=== PATIENT | female | born 1955 | race Caucasian/White ===

== ENCOUNTER 2020-03-24 12:21 | Outpatient (CLI) | payer MEDICARE, SELFPAY ==
--- NOTE | ~2020-03-24 | MM_ITS ---
EXAMINATION: MM screening [facility] BI w raul HISTORY: Screening mammogram TECHNIQUE: Craniocaudal and mediolateral oblique 3-D tomosynthesis images were obtained and synthetic 2-D images were generated. CAD analysis was submitted and interpreted. COMPARISON: 03/06/2019, 03/07/2017, 06/23/2016, 12/09/2015 BREAST PARENCHYMAL COMPOSITION: The breasts are heterogeneously dense, which may obscure small masses . FINDINGS: There is no evidence of suspicious mass, calcification, or architectural distortion to sugg est malignancy in either breast. There has been no suspicious interval change. IMPRESSION: 1. No mammographic evidence of malignancy. 2. Recommend routine screening mammography in one year. BI-RADS Category 1: Negative Reviewed, dictated and finalized at location A. MACHINE OPERATOR
--- NOTE | ~2020-03-24 | DEXA_ITS ---
Bone Density Report Name: Jeane Barroso Age: 65 Sex: Female Ethnicity: White Date of : 1955 Indication: osteopenia; hyperparathyroidism; height loss; prior fracture; cancer; hysterectomy; Referring Provider: Ysabel Rhodes Study: Bone densitometry was performed. Exam Date: March 24, 2020 Accession number: [id number] Bone Density: Region BMD T-score Z-score Classification AP Spine(L1-L4) 0.866 -1.6 0.3 Osteopenia Femoral Neck (Left) 0.699 -1.4 0.3 Osteopenia Total Hip (Left) 0.771 -1.4 -0.1 Osteopenia Femoral Neck (Right) 0.699 -1.3 0.3 Osteopenia Total Hip (Right) 0.768 -1.4 -0.1 Osteopenia Femoral Neck Mean 0.699 -1.4 0.3 Osteopenia Total Hip Mean 0.770 -1.4 -0.1 Osteopenia World Health Organization criteria for BMD impression classify patients as: Normal (T-score at or above -1.0), Osteopenia (T-score between -1.0 and -2.5), or Osteoporosis (T-score at or below -2.5). 10-year Fracture Risk(1): Major Osteoporotic Fracture 14% Hip Fracture 1.5% Reported Risk Factors: [place] (), Neck BMD=0.699, BMI=23.5, previous fracture (1) FRAX(R) Version 3.08. Fracture probability calculated for an untreated patient. Fracture probability may be lower if the patient has received treatment. Previous Exams: Region Exam Age BMD T-score BMD Change BMD Change Date g/cm2 vs Baseline vs Previous AP Spine (L1-L4) 03/24/2020 65 0.866 -1.6 0.016 (1.9%)# 0.016 (1.9%)# 11/01/2017 62 0.850 -1.8 Total Hip(Left) 03/24/2020 65 0.771 -1.4 -0.024 (-3.0%) -0.024 (-3.0%) 11/01/2017 62 0.795 -1.2 *Denotes significance at 95% confidence level, LSC for AP Spine = 0.022 g/cm2, LSC for Total Hip = 0.027 g/cm2 # Denotes dissimilar scan types or analysis methods Clinical Information Provided by Patient: Has had a low trauma fracture Has used the following medications: Calcium Has the following medical conditions: Cancer, Hyperparathyroidism, Hysterectomy Patient maximum height was 64 No regular weight bearing exercise Onset of menses at age 12 Number of children 3 Impression: The patient has low bone mass, based on the Total Spine T-score. The patient has risk factors, including: previous fracture. No significant bone loss was observed. Discussion: BONE DENSITY IS LOW AT ONE OR MORE SKELETAL SITES. This patient's lowest T-score is low at one or more skeletal sites. It meets the World Health Organization's (WHO) criteria for ?low bone mass
== END 2020-03-24 12:22 | disposition home or self-care (01) ==
LOC: CHSIMG 12:23
PROVIDERS: PCP Internal Medicine; Visit Provider Internal Medicine
DX: Z12.31 Encounter for screening mammogram for malignant neoplasm of breast (principal); M81.0 Age-related osteoporosis without current pathological fracture
CPT/HCPCS: 77063; 77067; 77080

== ENCOUNTER 2020-06-08 16:09 | Outpatient (CLI) | payer MEDICARE, SELFPAY ==
[2020-06-08 16:59] LABS: SARS-CoV-2 Ag Negative (Negative)
[2020-06-09 23:33] LABS: SARS-CoV-2 RNA PCR Negative
== END 2020-06-08 16:10 | disposition home or self-care (01) ==
LOC: CHSLAB 16:11
PROVIDERS: PCP Internal Medicine; Visit Provider Internal Medicine
DX: R43.9 Unspecified disturbances of smell and taste (principal); Z20.822 Contact with and (suspected) exposure to COVID-19
CPT/HCPCS: 87426; C9803; U0003; U0005

== ENCOUNTER 2020-07-20 08:52 | Outpatient (RCR) | payer MEDICARE, SELFPAY ==
--- NOTE | 2020-07-20 10:18 | PTOPEVAL ---
Thank you for referring Jeane Barroso to [facility].? The patient is scheduled to be seen for therapy? ____x/week for ___ weeks. Please review, sign, date and return this plan of care DANA. I agree with and certify that the following plan of care is medically necessary. Referring Physician Date Admitting Provider: Attending Provider: Ysabel Rhodes MD Referring Provider: *PT Outpatient Evaluation Start: 07/20/20 09:04 Freq: Status: Active Protocol: Document 07/20/20 09:05 Berna (Rec: 07/20/20 10:14 JON [email or web address]) Therapy Assessment Status Assessment Status Assessment Status Evaluation Evaluation Information Problem Diagnosis R cervical radiculopathy Onset 06/23/20 Additional Evaluation Detail ndi = 12% Subjective Information patient reports she has been Query Text:As Reported By Patient/ having nerve like symptoms in Family the R index, long, and ring finger for about 1 month. she reports no injury or activity related cause. she reports she woke one day without this pain/symptoms. she reports these symptoms extend up and down the back and outside of the shoulder and arm. she reports no pain with turning or moving her neck. she reports no increased symptoms in the arm/hand when moving the neck side to side. she reports her neck does pop/ crack a bit less than it had prior. she reports she has had no imaging of the neck as of this date. she reports no prescription meds. Prior Level of Function Comments Additional Prior Level of Function prior to june, patient Comments reports no issues in the R UE. she reports she has the greatest pain/symptoms in the mornings when she wakes up. Pain Assessment Timing of Pain Assessment Timing of Pain Assessment Assessment Pain Scale Pain Scale Used Numeric (1 - 10) Self Report Pain Assessment Neck Reported Pain Level 3 Pain Description Numbness,Sharp,Tingling Pain Radiation Right Arm,Right Elbow,Right Shoulder Pain Frequency Acute Lowest Pain Intensity 0 Greatest
== END 2020-08-25 11:14 | disposition home or self-care (01) ==
LOC: CHSPT 08:52
PROVIDERS: PCP Internal Medicine; Visit Provider Internal Medicine
DX: M54.12 Radiculopathy, cervical region (principal)
CPT/HCPCS: 97012; 97014; 97110; 97140; 97161; G0283

== ENCOUNTER 2021-04-12 08:18 | Outpatient (CLI) | payer MEDICARE, SELFPAY ==
--- NOTE | ~2021-04-12 | MM_ITS ---
EXAMINATION: MM screening [facility] BI w ra[facility] HISTORY: Screening mammogram TECHNIQUE: Craniocaudal and mediolateral oblique 3-D tomosynthesis images were obtained and synthetic 2-D images were generated. CAD analysis was submitted and interpreted. COMPARISON: 03/24/2020, 03/06/2019, 03/07/2017, 06/23/2016 BREAST PARENCHYMAL COMPOSITION: The breasts are heterogeneously dense, which may obscure small masses . FINDINGS: There is no evidence of suspicious mass, calcification, or architectural distortion to sugg est malignancy in either breast. There has been no suspicious interval change. IMPRESSION: 1. No mammographic evidence of malignancy. 2. Recommend routine screening mammography in one year. BI-RADS Category 1: Negative Reviewed, dictated and finalized at location A. ICAL SERVICES ASSISTANT
== END 2021-04-12 08:19 | disposition home or self-care (01) ==
LOC: CHSIMG 08:19
PROVIDERS: PCP Internal Medicine; Visit Provider Internal Medicine
DX: Z12.31 Encounter for screening mammogram for malignant neoplasm of breast (principal)
CPT/HCPCS: 77063; 77067

== ENCOUNTER 2021-08-12 00:12 | Day surgery (SDC) | payer MEDICARE, SELFPAY ==
[2021-07-27 13:38] VITALS: BMI 19.8
[2021-08-12 06:54] VITALS: BP 125/66; PULSE 78; RESP 18; TEMP 36.6; O2SAT 100; BMI 19.0
[2021-08-12] MEDS: LACTATED RINGERS 1,000 ML 150 ML IV CONT (07:05)
--- NOTE | 2021-08-12 07:48 | WPDANESEPPF ---
Anes - Initial Pre Proc Eval Procedure: Operation Date: 08/12/21 08:00 Proposed Procedures p Screening Colonoscopy - Willie Graf DO Date/Time: 08/12/21 07:48 Surgeon: Willie Graf DO Pre Op Diagnosis: hx of colon polyps Patient Data Age: 66 Gender: F Height: 1.65 m Weight: 51.9 kg Last Vital Signs Temp 36.6 C 08/12/21 06:54 Pulse 78 08/12/21 06:54 Resp 18 08/12/21 06:54 BP 125/66 08/12/21 06:54 Pulse Ox 100 08/12/21 06:54 Allergies Allergy/AdvReac Type Severity Reaction Status Date / Time Sulfa (Sulfonamide Allergy Unknown Swelling Verified 08/12/21 07:05 Antibiotics) Home Medications Medication Instructions Recorded Confirmed Type citalopram 10 mg PO DAILY 07/27/21 08/12/21 History levothyroxine 125 mcg PO DAILY 07/27/21 07/27/21 History lisinopril-hydrochlorothiazide 1 tablet PO DAILY 07/27/21 08/12/21 History Patient hx anesthesia problems: none Family hx anesthesia problems: none Results Review: All pre-operative results and documents have been reviewed as part of the pre-operative evaluation. [facility] Past Medical History Medical History Anxiety Hypertension Hypothyroid Lymphoma Murmur Social History Social History Smoking status: Never smoker Alcohol intake: never Substance use: never Living arrangements: with family Spiritual care concerns: No Anes - Eval Final PreProcedure Day of Procedure 08/12/21 07:48 Patient weight: normal Heart: regular rate and rhythm Lungs: clear to auscultation Airway: Mallampati scale class II Neurological: alert and oriented Last oral intake: >/= 8 hours ASA classification: III Emergent: no Anesthetic plan: proceed Anesthesia type and monitoring: general GIVS and standard monitoring Results Review: All pre-operative results and documents have been reviewed as part of the pre-operative evaluation. Informed Consent: The patient's anesthetic plan and its attendant risks and benefits were discussed with the patient/family/POA. Questions were solicited and answers provided to the satisfaction of the patient/family/POA.
--- NOTE | 2021-08-12 08:20 | PM.IMHP ---
H&P: HPI History of Present Illness Date/Time: 08/12/21 08:20 Chief Complaint: history of colon polyps Narrative: this is a 66-year-old woman who presented with a prior history of colon polyps. Her last colonoscopy was 5 years ago. She denies any hematochezia or melena. She does have a family history of colon cancer in her father who was diagnosed in his mid 80s. Review of Systems Review of Systems: All systems reviewed & are unremarkable except as noted in HPI and below Constitutional: Constitutional: Denies chills, Denies fever(s), Denies headache(s) and Denies weight loss Eyes: Eyes: Denies change in vision ENT: Denies dizziness, Denies headache(s), Denies neck mass and Denies throat swelling Cardiovascular: Cardiovascular: Denies chest pain, Denies lightheadedness and Denies dyspnea Respiratory: Respiratory: Denies cough, Denies dyspnea and Denies wheezing Gastrointestinal: Gastrointestinal: Denies abdominal pain, Denies change in bowel habits, Denies nausea and Denies vomiting Genitourinary: Genitourinary: Denies hematuria and Denies dysuria Musculoskeletal: Musculoskeletal: Reports as per HPI Integumentary/Breasts: Skin/Breast: Reports as per HPI Neurologic: Denies dizziness and Denies headache(s) Allergic/Immunologic: Allergic/Immunologic: Denies throat swelling and Denies wheezing PMF Past Medical History Medical History Anxiety Hypertension Hypothyroid Lymphoma Murmur Social History Social History Smoking status: Never smoker Alcohol intake: never Substance use: never Living arrangements: with family Spiritual care concerns: No Meds Home Medications and Allergies Home Medications Medication Instructions Recorded Confirmed Type citalopram 10 mg PO DAILY 07/27/21 08/12/21 History levothyroxine 125 mcg PO DAILY 07/27/21 07/27/21 History lisinopril-hydrochlorothiazide 1 tablet PO DAILY 07/27/21 08/12/21 History Allergies Allergy/AdvReac Type Severity Reaction Status Date / Time Sulfa (Sulfonamide Allergy Unknown Swelling Verified 08/12/21 07:05 Antibiotics) Vital Signs Vital Signs - 24 hr 08/12/21 06:54 Temperature 36.6 C Pulse Rate 78 Respiratory Rate 18 Blood Pressure 125/66 Pulse Oximetry 100 Exam Const: General: no acute distress and alert Orientation/consciousness: patient oriented x3 HENMT: Head: normocephalic and atraumatic Ears: hearing grossly normal bilaterally General nose exam: Normal nares present Mouth: Yes Normal oral and palatal mucosa present Eyes: Periorbital: periorbital findings normal Sclera: sclerae normal EOM: EOMs intact bilaterally Neck: Neck: normal visual inspection, no lymphadenopathy and trachea midline Chest: Chest palpation & inspection: normal inspection of the chest Resp: Effort & Inspection: normal respiratory effort Auscultation: clear to auscultation bilaterally Cardio: Jugular venous distension: no JVD Rate: regular rate Rhythm: regular rhythm Heart sounds: S1 normal heart sound present and S2 normal heart sound present Peripheral pulses: Peripheral pulses 2+ throughout GI: Inspection: normal to inspection GI Palp: Yes Soft to palpation, No Tenderness to palpation present (GI), No Guarding due to palpation present (GI) and No Rebound tenderness present Percussion: Yes normal to percussion Auscultation: normal bowel sounds : General: Yes no CVA tenderness Back/Spine/Pelvis: Back: no CVA tenderness Neuro: General: patient oriented x3, no focal motor deficits and CN's II-XI intact bilaterally Cognition (Neuro): normal cognition Speech: normal speech Motor exam (neuro): 5/5 motor strength present throughout Extrem: General: capillary refill normal and no clubbing, cyanosis or edema Assessment and Plan Assessment and plan (1) Hx of colonic polyps: Code(s): Z86.010 - Pe
[2021-08-12 08:48] VITALS: BP 87/52; PULSE 84; RESP 13; O2SAT 98
[2021-08-12 08:58] VITALS: BP 103/59; PULSE 81; RESP 17; O2SAT 98
[2021-08-12 09:08] VITALS: BP 116/67; PULSE 77; RESP 16; O2SAT 98
== END 2021-08-12 09:20 | disposition home or self-care (01) ==
PROVIDERS: PCP Internal Medicine; Visit Provider Surgery
PROC: 0DJD8ZZ Inspection of Lower Intestinal Tract, Via Natural or Artificial Opening Endoscopic (ICD-10-PCS; CPT 45378; principal; 2021-08-12 08:00)
DX: Z12.11 Encounter for screening for malignant neoplasm of colon (principal); Z86.010 Personal history of colon polyps; Z80.0 Family history of malignant neoplasm of digestive organs; I10 Essential (primary) hypertension; C85.90 Non-Hodgkin lymphoma, unspecified, unspecified site; E03.9 Hypothyroidism, unspecified; R01.1 Cardiac murmur, unspecified; F41.9 Anxiety disorder, unspecified
CPT/HCPCS: G0105; J2704; J7120

== ENCOUNTER 2022-06-23 08:18 | Outpatient (CLI) | payer MEDICARE, SELFPAY ==
--- NOTE | ~2022-06-23 | DEXA_ITS ---
Bone Density Report Name: LAURA ALONZO Age: 67 Sex: Female Ethnicity: White Date of : 1955 Indication: postmenopausal; screening for osteoporosis; height loss; prior fracture; cancer; hysterectomy; Referring Provider: Ysabel Rhodes Study: Bone densitometry was performed. Exam Date: June 23, 2022 Accession number: [id number] Bone Density: Region BMD T-score Z-score Classification AP Spine(L1-L4) 0.815 -2.1 0.0 Osteopenia Femoral Neck (Left) 0.613 -2.1 -0.4 Osteopenia Total Hip (Left) 0.700 -2.0 -0.5 Osteopenia Femoral Neck (Right) 0.651 -1.8 0.0 Osteopenia Total Hip (Right) 0.714 -1.9 -0.4 Osteopenia Femoral Neck Mean 0.632 -2.0 -0.2 Osteopenia Total Hip Mean 0.707 -1.9 -0.5 Osteopenia World Health Organization criteria for BMD impression classify patients as: Normal (T-score at or above -1.0), Osteopenia (T-score between -1.0 and -2.5), or Osteoporosis (T-score at or below -2.5). 10-year Fracture Risk(1): Major Osteoporotic Fracture 19% Hip Fracture 3.6% Reported Risk Factors: [place] (), Neck BMD=0.613, BMI=25.0, previous fracture (1) FRAX(R) Version 3.08. Fracture probability calculated for an untreated patient. Fracture probability may be lower if the patient has received treatment. Clinical Information Provided by Patient: Has had a low trauma fracture Has used the following medications: HRT (i.e. estrogen/hormone therapy), Vitamin D, Calcium Has the following medical conditions: Cancer, Hysterectomy, hypothyroidism Patient maximum height was 66 Menopause Age: 38 No regular weight bearing exercise Onset of menses at age 12 Number of children 3 Impression: The patient has low bone mass, based on the Total Spine T-score. The patient has risk factors, including: previous fracture. Discussion: BONE DENSITY IS LOW AT ONE OR MORE SKELETAL SITES. This patient's lowest T-score is low at one or more skeletal sites. It meets the World Health Organization's (WHO) criteria for ?low bone mass? (T-score between -1.0 and -2.5). The patient's 10-year risk of fracture as calculated by FRAX is less than the threshold where pharmacological therapy is recommended by the National Osteoporosis Foundation (NOF). However, all treatment decisions require clinical judgment and consideration of individual patient factors, including patient preferences, comorbidities, previous drug use, risk factors not captured in the FRAX model (e.g., frailty, falls, vitamin D deficiency, increased bone turnover, interval significant decline in bone density) and possible under or overestimation of fracture risk by FRAX. The patient should follow a healthful lifestyle (good nutrition with adequate calcium and vitamin D, and appropriate weight-bearing exercise). Follow-Up
--- NOTE | ~2022-06-23 | MM_ITS ---
EXAMINATION: MM screening [facility] HISTORY: Screening mammogram TECHNIQUE: Craniocaudal and mediolateral oblique 3-D tomosynthesis images were obtained and synthetic 2-D images were generated. CAD analysis was submitted and interpreted. COMPARISON: 04/12/2021, 03/24/2020, 03/06/2019 bilateral screening mammogram examinations BREAST PARENCHYMAL COMPOSITION: The breasts are heterogeneously dense, which may obscure small masses . FINDINGS: There is no evidence of suspicious mass, calcification, or architectural distortion to sugg est malignancy in either breast. There has been no suspicious interval change. IMPRESSION: 1. No mammographic evidence of malignancy. 2. Recommend routine screening mammography in one year. BI-RADS Category 1: Negative Reviewed, dictated and finalized at location A.
== END 2022-06-23 08:19 | disposition home or self-care (01) ==
LOC: CHSIMG 08:20
PROVIDERS: PCP Internal Medicine; Visit Provider Internal Medicine
DX: Z12.31 Encounter for screening mammogram for malignant neoplasm of breast (principal); Z78.0 Asymptomatic menopausal state; M85.89 Other specified disorders of bone density and structure, multiple sites
CPT/HCPCS: 77063; 77067; 77080

== ENCOUNTER 2022-09-14 16:54 | Outpatient (CLI) | payer MEDICARE, SELFPAY ==
--- NOTE | ~2022-09-14 | XR_ITS ---
EXAMINATION: XR heel LT min 2V INDICATION: Retained foreign body of the left heel TECHNIQUE: Foot two views of the left calcaneus are obtained. COMPARISON: None available FINDINGS: No fracture, dislocation, or subluxation. The bones and joint spaces are normal. There is a 12 mm thin linear metallic density projecting in the plantar soft tissues of the foot near the calca neus. The foreign body is approximately 5 mm from the skin surface. Posterior and plantar calcaneal e nthesophytes are noted. IMPRESSION: 1. Linear metallic foreign body of the plantar soft tissues of the heel which has the appearance of a needle tip. Reviewed, dictated and finalized at location F. IMPRESSION: 1. Linear metallic foreign body of the plantar soft tissues of the heel which h as the appearance of a needle tip.
== END 2022-09-14 16:55 | disposition home or self-care (01) ==
LOC: CHSIMG 16:56
PROVIDERS: PCP Internal Medicine; Visit Provider Internal Medicine
DX: M79.5 Residual foreign body in soft tissue (principal)
CPT/HCPCS: 73650

== ENCOUNTER 2023-07-18 11:51 | Outpatient (CLI) | payer MEDICARE, SELFPAY ==
--- NOTE | ~2023-07-18 | MM_ITS ---
EXAMINATION: MM screening [facility] HISTORY: Screening mammogram TECHNIQUE: Craniocaudal and mediolateral oblique 3-D tomosynthesis images were obtained and synthetic 2-D images were generated. CAD analysis was submitted and interpreted. COMPARISON: June 23, 2022, April 12, 2021 bilateral screening mammogram examinations BREAST PARENCHYMAL COMPOSITION: The breasts are heterogeneously dense, which may obscure small masses . FINDINGS: There is no evidence of suspicious mass, calcification, or architectural distortion to sugg est malignancy in either breast. There has been no suspicious interval change. IMPRESSION: 1. No mammographic evidence of malignancy. 2. Recommend routine screening mammography in one year. BI-RADS Category 1: Negative Reviewed, dictated and finalized at location A.
== END 2023-07-18 11:52 | disposition home or self-care (01) ==
LOC: CHSIMG 11:53
PROVIDERS: PCP Internal Medicine; Visit Provider Internal Medicine
DX: Z12.31 Encounter for screening mammogram for malignant neoplasm of breast (principal)
CPT/HCPCS: 77063; 77067

== ENCOUNTER 2023-08-25 08:15 | Outpatient (CLI) | payer MEDICARE, SELFPAY ==
--- NOTE | ~2023-08-25 | DEXA_ITS ---
? Bone Density Report? Name:? LAURA ALONZO Patient ID:??? [id number] Age:? 68 Sex:? Female Ethnicity:? White Date of : 1955 Indication: postmenopausal; screening for osteoporosis; height loss; prior fracture; cancer; hysterectomy; Referring Provider: GENOVEVA BARTH Study: Bone densitometry was performed. Exam Date: August 25, 2023 Accession number: [id number] Bone Density: Region? BMD??? T-score? Z-score?? Classification AP Spine(L1-L4)? 0.861?? -1.7?0.4? Osteopenia Femoral Neck (Left)? 0.618?? -2.1? -0.3? Osteopenia Total Hip (Left)?0.751?? -1.6? 0.0? Osteopenia Femoral Neck (Right)? 0.616?? -2.1? -0.3? Osteopenia Total Hip (Right)? 0.737?? -1.7? -0.1? Osteopenia Femoral Neck Mean? 0.617?? -2.1? -0.3? Osteopenia Total Hip Mean?0.744?? -1.6? -0.1? Osteopenia World Health Organization criteria for BMD impression classify patients as: Normal (T-score at or above -1.0), Osteopenia (T-score between -1.0 and -2.5), or Osteoporosis (T-score at or below -2.5). 10-year Fracture Risk: FRAX not reported because: ? Treated for osteoporosis Clinical Information Provided by Patient: Has had a low trauma fracture Is being treated for osteoporosis Has used the following medications: Fosamax (i.e. alendronate), HRT (i.e. estrogen/hormone therapy), Vitamin D, Calcium Has the following medical conditions: Cancer, Hysterectomy, hypothyroidism Patient maximum height was 66 Menopause Age: 38 No regular weight bearing exercise Onset of menses at age 12 Number of children 3 Impression: The patient has low bone mass, based on the Left Femoral Neck T- score. The patient has risk factors, including: previous fracture. Discussion: It is important to ask patients whether they are taking their medications and to encourage continued and appropriate compliance with their osteoporosis therapies to reduce fracture risk. It is also important to review their risk factors and encourage appropriate calcium and vitamin D intakes, exercise, fall prevention and other lifestyle measures. Follow-Up: Consider a repeat BMD and Vertebral Fracture Assessment (VFA) exam in 2 years or sooner if medically necessary, to reassess this patient's status. Reported by: Dr. Aaron Regalado on :17:00 AM. MEHRAN
== END 2023-08-25 08:16 | disposition home or self-care (01) ==
LOC: CHSIMG 08:16
PROVIDERS: PCP Internal Medicine; Visit Provider Internal Medicine
DX: Z78.0 Asymptomatic menopausal state (principal); M85.89 Other specified disorders of bone density and structure, multiple sites
CPT/HCPCS: 77080

== ENCOUNTER 2023-10-27 10:18 | Outpatient (CLI) | payer MEDICARE, SELFPAY ==
--- NOTE | ~2023-10-27 | XR_ITS ---
XR chest 2V 10/27/2023 10:46 Indication: Cough with wheezing Procedure: 2 view chest Comparison: 06/21/2018 Findings: Right middle lobe pneumonia. The lungs are hyperinflated which is consistent with, but not diagnostic of chronic obstructive pulmonary disease. Heart size normal. No pleural effusion, edema or pneumothorax. Impression: 1: Right middle lobe pneumonia. Reviewed, dictated and finalized at location B. Impression: 1: Right middle lobe pneumonia.
[2023-10-27 10:34] LABS: Basophils Absolute Auto 0.05 K/mm3 (0.00-0.10); Basophils Percent Auto 0.4 % (0.0-1.0); Eosinophils Absolute Auto 0.01 K/mm3 (0.02-0.50); Eosinophils Percent Auto 0.1 % (1.0-6.0); Hematocrit 46.9 % (35.0-42.0); Hemoglobin 15.3 g/dL (11.7-13.8); Immature Granulocyte Absolute 0.04 K/mm3 (0.00-0.00); Immature Granulocyte Percent A 0.3 % (0.0-0.0); Lymphocytes Absolute Auto 1.56 K/mm3 (1.10-4.50); Lymphocytes Percent Auto 13.5 % (18.0-42.0); Mean Corpuscular HGB Conc 32.6 g/dL (32-36); Mean Corpuscular Hemoglobin 29.7 pg (27.0-31.0); Mean Corpuscular Volume 90.9 fL (78.0-102.0); Mean Platelet Volume 8.6 fl (9.2-11.8); Monocytes Absolute Auto 0.36 K/mm3 (0.10-0.90); Monocytes Percent Auto 3.1 % (2.0-11.0); Neutrophils Absolute Auto 9.57 K/mm3 (1.70-7.20); Neutrophils Percent Auto 82.6 % (50.0-70.0); Platelet Count Result 308 K/mm3 (150-420); Red Blood Count 5.16 M/mm3 (4.20-5.40); Red Cell Distribution Width 12.8 % (11.6-14.4); White Blood Count 11.6 K/mm3 (4.8-10.8)
[2023-10-27 10:49] LABS: Albumin Level 3.5 g/dL (3.4-5.0); Alkaline Phosphatase 98 U/L (46-116); Anion Gap 10 mmol/L (4-12); Bilirubin,Total 0.6 mg/dL (0.00-1.00); Blood Urea Nitrogen 14 mg/dL (7-18); Calcium 9.3 mg/dL (8.5-10.1); Carbon Dioxide 30 mmol/L (21-32); Chloride 100 mmol/L (98-108); Estimated Glomerular Filt Rate 59; Glucose 184 mg/dL (70-99); Osmolality Calculated 295 mOsm/kg (285-295); Potassium 3.8 mmol/L (3.5-5.1); Sodium 140 mmol/L (136-145); Total Protein 6.7 g/dL (6.4-8.2)
[2023-10-27 10:59] LABS: Alanine Aminotransferase 20 U/L (14-59); Aspartate Amino Transferase 14 U/L (15-37)
== END 2023-10-27 10:19 | disposition home or self-care (01) ==
LOC: CHSLAB 10:20
PROVIDERS: PCP Internal Medicine; Visit Provider Internal Medicine
DX: R05.9 Cough, unspecified (principal); R06.2 Wheezing; J18.9 Pneumonia, unspecified organism
CPT/HCPCS: 36415; 71046; 80053; 85025

== ENCOUNTER 2023-11-03 07:54 | Outpatient (CLI) | payer MEDICARE, SELFPAY ==
--- NOTE | ~2023-11-03 | XR_ITS ---
XR chest 2V Ordering provider: Ysabel Rhodes MD History: 68 years Female with . F/U PNEUMONIA . Comparison: October 27, 2023 FINDINGS: MEDIASTINUM: The cardiac silhouette is not enlarged. LUNGS: No infiltrates, effusions or pneumothorax. Subsegmental atelectasis in the right lung base. Residual pneumonia is not excluded. Follow-up advise d. OTHER: No free air under the diaphragm. Osteopenia of the bones. Degenerative changes of the spine. K yphosis. IMPRESSION: Subsegmental atelectasis in the right lung base. Residual pneumonia is not excluded. Follow-up advise d. Reviewed, dictated and finalized at location A. IMPRESSION: Subsegmental atelectasis in the right lung base. Residual pneumonia is not excl uded. Follow-up advised.
[2023-11-03 08:16] LABS: Hematocrit 43.6 % (35.0-42.0); Hemoglobin 14.6 g/dL (11.7-13.8); Mean Corpuscular HGB Conc 33.5 g/dL (32-36); Mean Corpuscular Hemoglobin 30.2 pg (27.0-31.0); Mean Corpuscular Volume 90.1 fL (78.0-102.0); Mean Platelet Volume 8.8 fl (9.2-11.8); Platelet Count Result 263 K/mm3 (150-420); Red Blood Count 4.84 M/mm3 (4.20-5.40); Red Cell Distribution Width 13.2 % (11.6-14.4); White Blood Count 10.6 K/mm3 (4.8-10.8)
[2023-11-03 09:00] LABS: Alanine Aminotransferase 18 U/L (14-59); Albumin Level 3.4 g/dL (3.4-5.0); Alkaline Phosphatase 82 U/L (46-116); Anion Gap 5 mmol/L (4-12); Aspartate Amino Transferase 13 U/L (15-37); Bilirubin,Total 0.7 mg/dL (0.00-1.00); Blood Urea Nitrogen 17 mg/dL (7-18); Calcium 8.8 mg/dL (8.5-10.1); Carbon Dioxide 32 mmol/L (21-32); Chloride 102 mmol/L (98-108); Estimated Glomerular Filt Rate > 60; Glucose 93 mg/dL (70-99); Osmolality Calculated 289 mOsm/kg (285-295); Potassium 3.7 mmol/L (3.5-5.1); Sodium 139 mmol/L (136-145); Total Protein 5.7 g/dL (6.4-8.2)
== END 2023-11-03 07:55 | disposition home or self-care (01) ==
PROVIDERS: PCP Internal Medicine; Visit Provider Internal Medicine
DX: J18.9 Pneumonia, unspecified organism (principal); R91.8 Other nonspecific abnormal finding of lung field
CPT/HCPCS: 36415; 71046; 80053; 85027

== ENCOUNTER 2023-11-17 08:04 | Outpatient (CLI) | payer MEDICARE, SELFPAY ==
--- NOTE | ~2023-11-17 | XR_ITS ---
XR chest 2V 11/17/2023 08:36 Indication: Pneumonia follow-up Procedure: 2 view chest Comparison: Comparison to multiple prior studies sequentially, with oldest reviewed study dated 10/26. Findings: Near complete resolution of right middle lobe pneumonia. Heart size normal. No pleural effu adam, edema or pneumothorax. Impression: 1: Near-complete resolution of right middle lobe pneumonia. Reviewed, dictated and finalized at location B. Impression: 1: Near-complete resolution of right middle lobe pneumonia.
== END 2023-11-17 08:05 | disposition home or self-care (01) ==
LOC: CHSIMG 08:06
PROVIDERS: PCP Internal Medicine; Visit Provider Internal Medicine
DX: J18.9 Pneumonia, unspecified organism (principal)
CPT/HCPCS: 71046

== ENCOUNTER 2024-04-12 11:23 | Outpatient (CLI) | payer MEDICARE, SELFPAY ==
--- NOTE | ~2024-04-12 | XR_ITS ---
XR chest 2V Ordering provider: Ysabel Rhodes MD History: 69 years Female with . cough x1 month, pneumonia f/u . Comparison: November 17, 2023 FINDINGS: MEDIASTINUM: The cardiac silhouette is not enlarged. LUNGS: No infiltrates, effusions or pneumothorax. Underlying emphysematous changes. OTHER: No free air under the diaphragm. Degenerative spine. Increased kyphosis. Density seen in the upper abdomen anteriorly. Possibility of bony stone cannot be excluded. Artifact is also possible. IMPRESSION: No acute cardiopulmonary pathology. Reviewed, dictated and finalized at location A. TICAL ANALYST
== END 2024-04-12 11:24 | disposition home or self-care (01) ==
LOC: CHSIMG 11:24
PROVIDERS: PCP Internal Medicine; Visit Provider Internal Medicine
DX: R05.9 Cough, unspecified (principal)
CPT/HCPCS: 71046

== ENCOUNTER 2024-07-22 07:19 | Outpatient (CLI) | payer MEDICARE, SELFPAY ==
--- NOTE | ~2024-07-22 | MM_ITS ---
EXAMINATION: MM screening elmer BI w raul HISTORY: Screening TECHNIQUE: Craniocaudal and mediolateral oblique 3-D tomosynthesis images were obtained and synthetic 2-D images were generated. CAD analysis was submitted and interpreted. COMPARISON: Comparison to multiple prior studies sequentially, with oldest reviewed study dated 02/09. BREAST PARENCHYMAL COMPOSITION: Dense: The breasts are heterogeneously dense, which may obscure small masses FINDINGS: There is no evidence of suspicious mass, calcification, or architectural distortion to sugg est malignancy in either breast. There has been no suspicious interval change. IMPRESSION: 1. No mammographic evidence of malignancy. 2. Recommend routine screening mammography in one year. BI-RADS Category 1: Negative Reviewed, dictated and finalized at location []
--- OUTSIDE RECORDS SUMMARY | 2024-07-22 07:25 | XMS_ITS | Continuity of Care Document ---
Author Organization [facility] Address [address] [place] [phone] Phone Care Team Providers Care Combine Driver Name Role Phone Donavan Davidson MD, FACS Unavailable Unavailab le Allergies, Adverse Reactions, Alerts Substance Reaction Status Criticality Sulfa (Sulfonamide Antibiotics) Active No Information Medications Medication Instructions Dosage Effective Dates (start - stop) Status Comments Synthroid 125 mcg Tab take 1 tablet (125MCG) by ORAL route every day 125 MCG - Active Vitamin D3 25 mcg (1,000 unit) capsule take 1 tablet by oral route every day 1 tablet - Active citalopram 10 mg tablet take 1 tablet by oral route every day 10 MG - Active multivitamin tablet take 1 tablet by oral route every day with food - Active lorazepam 0.5 mg tablet take 2 tablet by oral route 3 times every day as needed 1 MG - Active alendronate 70 mg tablet take 1 tablet by oral route every week in the morning, at least 30 min before first food, beverage, or medication of day 70 MG - Active lisinopril 10 mg-hydrochlorothiazi de 12.5 mg tablet take 1 tablet by oral route every day 1.00 tablet - Active AREDS 2 ORAL CAPSULE - Active Procedures Procedure Date SCLISA, Retina Fundus Photography W/ Report Refraction Eye Exam & Treatment No Charge Optomap Fundus Photos 024 No Charge Refraction Refraction Fundus Photography W/ Report Eye Exam, New Patient Fundus Photography W/ Report Eye Exam & Treatment No Charge Refraction Eye Exam & Treatment Fundus Photography W/ Report Eye Exam & Treatment Fundus Photography W/ Report Refraction Eye Exam & Treatment Fundus Photography W/ Report Office/outpatient Visit, Est Fundus Photography W/ Report Advance Directives Directive Yes / No Effective Date File Name Other Directive No N/A N/A WARNING:The information contained in this section is historical and is provided for information only and does not constitute a legal document or any assurance that the information is still accurate. Please verify the information with the locke of the legal document before using it for clinical purposes. Encounters Encounter Description Practice Location Reason(s) For Visit Diagnoses Date Provider Providers Copied on Encounter [facility], [id number], [place], [place], [id number], tel:[phone] SEC Shaheen XIE Professional Dilated exam (chief complaint) Peripheral drusen of both eyesCombined forms of age-related cataract, bilateral 4 Stuart Go[id number], [address], [place], [place], [address], [place]. tel:[phone] Referring Provider: Donavan Avalos, [id number], [place], [address] . tel:[phone] [facility], [id number], [place], [place], [id number], tel:[phone] SEC [place] Complete Exam (chief complaint) Drusen (degenerative) of macula, bilateralCombi lois forms of age-related cataract, bilateral Aug-2 8 3 Stuart Donavan. [facility] [employer], [address], [place], [place], [address], [place]. tel:[phone] Referring Provider: Donavan Avalos, [facility] [address] [employer] [address], [place], [address] . tel:[phone] [facility], [facility] [address], [place], [place], [address], [place] tel:[phone] SEC Shaheen XIE Professional Complete Exam (chief complaint) Other age-related incipient cataract, bilateralRetin al drusen of both eyes Jun- 8 Stuart Donavan. [facility] [employer], [address], [place], [place], [address], [place]. tel:[phone] Referring Provider: Donavan Avalos, [facility] [employer] [address], [place], [address] . tel:[phone] [facility], [facility] [address], [place], [place], [address], [place] tel:[phone] SEC Shaheen XIE Professional No Information Jun-0 8 Betzaida Peterson. [address] [place], [address], [place]. tel:[phone] [facility], [facility] [address], [place], [place], [address], [place] tel:[phone] SEC [facility] Blurry vision (chief complaint) DRUSEN (DEGENERATIVE) Nov-0 5 Stuart Donavan. [facility] [employer], [address], [place], [place], [address], [place]. tel:[phone] Referring Provider: Donavan Avalos, [facility] [employer] [address] [employer] [address], [place], [address] . tel:[phone] [facility], [facility] [address], [place], [place], [address], [place] tel:[phone] SEC [place] DRUSEN (DEGENERATIVE) Apr-0 1-201 3 Greenwood Donavan. [facility] [employer], [address], [place], [place], [address] [place] [address], . tel:[phone] Referring Provider: Donavan Avalos, [facility] [address], [place], [address] . tel:[phone] [employer] [facility], [facility] [address], [place], [place], [address] [place] [address], tel:[phone] SEC [place] No Information Oct-2 5-201 0 Stuart Go. [facility] [employer], [address], [place], [place], [id number], . tel:[phone] Referring Provider: Donavan Avalos, [facility] [address], [place], [address] . tel:[phone] [employer] [facility], [facility] [address], [place], [address] [place] [address], tel:[phone] SEC [place] No Information Jan-2 1-201 0 Stuart Donavan. [facility] [employer], [address], [place], [place], [address], . tel:[phone] Office/outpa tient Visit, [facility] [employer] [facility], [facility] [address], [place], [place], [address], tel:[phone] SEC [place] No Information Mar-0 2-200 9 Stuart Donavan. [facility] [employer], [address], [place], [place], [address], . tel:[phone] Referring Provider: Donavan Avalos, [facility] [employer] [address], [place], [address] . tel:[phone] Family History Family Member Type Diagnosis Age At Onset Problem (finding) Father Problem (finding) Arthritis Father Problem (finding) Colon Cancer Mother Problem (finding) diabetes melli tus in first degree relative Close relative Problem (finding) glaucoma Mother Problem (finding) Stroke Mother Problem (finding) High blood pressure Mother Problem (finding) Diabetes Type II Father Problem (finding) High cholesterol Mother Problem (finding) Arthritis Mother Problem (finding) High cholesterol Father Problem (finding) Heart Disease Payers Payer name Insurance type Covered constitution party ID Authorjosé miguelarlette subramanian(s) [place] [id number] [facility] [id number] Social History Type Description Quantity Date Captured Comments Alcohol Use Details No Caffeine Use Details No Tobacco Use Status Current non-smoker Smoking Status Never smoker Non-Smoking Tobacco Use Details : No Details Available : No Details Available Sex Female Chief Complaint And Reason For Visit From encounter dated '02/20/2024 14:30'. Dilated exam (chief complaint). Description: The 69 year old patient presents for evaluation of Dilated exam in the right eye and left eye. Pt has h/o Macular drusen and cataracts ou. Pt states she feels her vision is stable ou the past year. Pt states no metamorphopsia. Pt states no ocular discomfort. Pt is still good about taking ARED's po but only 1 a day due to stomach upset. Pt does find she needs more light in order to read small print. Reason For Referral Reason For Referral No Information Plan Of Treatment Date Type Action Status Patient Education Cataracts: Care Instruc tions completed History Of Present Illness Encounter Date Complaint History Of Prese nt Illness Dilated exam The 69 year old patient presents for evaluation of Dilated exam in the right eye and left eye. Pt has h/o Macular drusen and cataracts ou. Pt states she feels her vision is stable ou the past year. Pt states no metamorphopsia. Pt states no ocular discomfort. Pt is still good about taking ARED's po but only 1 a day due to stomach upset. Pt does find she needs more light in order to read small print. Complete Exam The 67 year old patient presents for evaluation of Complete Exam in the right eye and left eye. Pt reports a decrease in distance vision OU x 6 months. Pt states she has to get a little closer to street signs to see clearly. Denies ocular discomfort. Pt does not use any eye gtts. Pt takes Areds-2. Complete Exam The 62 year old female presents for evaluation of Complete Exam in the right eye and left eye. Hx of Drusen OU and RPE OU. Pt states vision is clear and stable OU at distance and near x 2+ yrs. Pt reports a feeling of grittiness in the AM and lashes were matted 2 mos ago. Pt went to nurse practitioner and was told she had allergies. Pt states OU have been feeling much better over the past few wks. Pt used saline to wash out eyes when they gritty. Blurry vision The 59 year old female presents for complete exam. Patient denies any v/a changes OU. Patient says she wears her prescription glasses all the time now. Patient denies any pain or discomfort. Patient not taking any gtts. Functional Status Date Functional Assessmen t No Information Instructions Date Instruction Additional Infor vimal Impression/Plan Impression/Plan Impression/Plan Surgery not indicated now. Relat ed to Other age-related incipient cataract, bilateral - RTC in 1 year for a complete e xam Related to See list of assessments above DRUSEN (DEGENERATIVE ) - Educational material given Related to DRUSEN (DEGENERATIVE) - Discussed Drusen i n detail with patient. Counseling about the benefits AREDS 2 BID for preventing progression of age-related macular degeneration (AMD) was provided to the patient. Will continue to monitor. RTC in 1 year for a complete exam. Related to See list of assessments above - 1 yr complete exam Related to Drusen Drusen, OU - establi shed, stable - vision not affected - will continue to monitor - Mac risk study discussed with pt and AREDs, pt unable to tolerate AREDs pt elects Mac Risk study today. New Spec Rx given to pt. Related to Drusen Assessments Type Assessment Date assessment Peripheral drusen of both eyes N assessment Combined forms of age-related ca taract, bilateral Patient Care Teams Name Effective Dates (start - stop) Status Members No Information
--- OUTSIDE RECORDS SUMMARY | 2024-07-22 07:25 | XMS_ITS | Clinical Summary ---
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
--- OUTSIDE RECORDS SUMMARY | 2024-07-22 07:26 | XMS_ITS | Clinical Summary ---
Author Organization [facility] Address [address] [place] [address] Phone Care Team Providers Care Diploma Maker Name Role Phone Provider, None Primary Care Provider Unavailabl e Allergies Active Allergy Reactions Criticality Noted Date Comments Other Unknown Sulfa drugs Medications citalopram (CELEXA) 20 MG TabletIndications :Anxiety and depression Take 0.5 Tabs by mouth daily. 90 Tab 07/27/2017 Active Ibuprofen 200 MG Capsule Take 200 mg by mouth 4 times daily as needed. Active levothyroxine (SYNTHROID) 125 MCG TabletIndications :Hypothyroidism, unspecified type Take 1 Tab by mouth daily. 90 Tab 10/12/2017 Active triamterene-hydro chlorothiazide (MAXZIDE) 37.5-25 MG Tablet Take 1 Tab by mouth daily. 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 Immunizations Immunization Administration Dates Next Due Influenza Vaccine greater than 3 yrs 02/12/2015, 01/16/2014 Influenza Vaccine less than 3 yrs 01/14/2016 TDAP Vaccine 02/22/2012 Family History Medical History Relation Name Comments Chronic Obstructive Pulmonary Disease Father Colon Cancer Father Heart Attack Father High Cholesterol Father Diabetes Mother High Cholesterol Mother Hypertension Mother Stroke Mother Diabetes Sister Relation Name Status Comments Father Alive Mother Alive Sister Alive Social History Tobacco Use Types Packs/Day Years Used Date Smoking Tobacco: Never Smokeless Tobacco: Never Tobacco Cessation:Counseling Given: No Alcohol Use Standard Drinks/Week Comments No 0 (1 standard drink = 0.6 oz pur e alcohol) Sexually Active Control Partners Comments Yes Male Comments No Sex and Gender Information Value Date Recorded Sex Assigned at Not on file Legal Sex Female 9:41 PM CDT Gender Identity Not on file Sexual Orientation Not on file Last Filed Vital Signs Vital Sign Reading Time Taken Comments Blood Pressure 154/85 11/07/2019 1:31 PM CDT Pulse 78 11/07/2019 1:31 PM CDT Temperature 37.5 C (99.5 F) 11/07/2019 1:31 PM CDT Respiratory Rate 20 11/07/2019 1:31 PM CDT Oxygen Saturation 97% 11/07/2019 1:31 PM CDT Inhaled Oxygen Concentration - - Weight 67.8 kg (149 lb 6.4 oz) 11/07/2019 1:31 P M CDT Height 162.6 cm (5' 4 ) 11/07/2019 1:31 PM CDT Body Mass Index 25.64 11/07/2019 1:31 PM CDT Plan of Treatment Health Maintenance Due Date Last Done Comments Hepatitis C Virus (HCV) Screening 1953 Cologuard 2003 Immunochemical Fecal Occult Blood 2003 Zoster Immunization (1 of 2) 2003 Colonoscopy 09/29/2021 09/29/2016 Colorectal Cancer Screening 09/29/2021 Td Immunization Every 10 Years (Adults With 1 Tdap) 02/21/2022 02/22/2012 Influenza Immunization (#1) 12/10/202302/08, 01/31/2018, 01/14/2016, Additional history exists SARS-COV-2 Immunization ( season) 2023 02/26/2021, 07/09/2020, 06/11/2020 Respiratory Syncytial Virus (RSV) Immunization (Adult) (1 - 1-dose 75+ series) 02/11/2028 09/29/2016 Mammogram Discontinued 06/23/2016, 08/3 04/2015, 06/01/2015, Additional history exists Pneumococcal Immunization (50+ years) Completed 02/18/2019, 01/31/2018 Pneumococcal Immunization Combined Discontinued 02/18/2019, 01/31/2018 Hepatitis B Immunization Aged Out No longer eligible based on patient's age to complete this topic Meningococcal Immunization (ACWY) Aged Out No longer eligible based on patient's age to complete this topic Rotavirus Immunization Aged Out No lo nger eligible based on patient's age to complete this topic Procedures Procedure Name Priority Date/Time Associated Diagnosis Comments HM COLONOSCOPY Routine 09/29/2016 YAYA DIAG BILATERAL DIGITAL W CAD Routine 06/23/2016 9:40 AM CDT Abnormal mammogram of both breasts from Last 3 Months or Most Recently Relevant to Health Maintenance Results * HM COLONOSCOPY (09/29/2016) us Sumit Schuster DO PROCEDURE/MINOR SURGICAL ORDERA BLES Final Result * YAYA DIAG BILATERAL DIGITAL W CAD (06/23/2016 9:40 AM CDT) Anatomical Region Laterality Modality breast Bilateral Mammography 06/23/2016 9:02 AM CDT Narrative 06/23/2016 2:54 PM CDT - YAYA DIAG BILATERAL DIGITAL W CAD BILATERAL DIGITAL DIAGNOSTIC MAMMOGRAM WITH CAD WITH MEDIOLATERAL OBLIQUE CRANIOCAUDAL: 06/23/2016 The study was acquired using digital technology and interpreted from soft copy. Current study was also evaluated with ICAD version 7.2. CLINICAL: Diagnostic study. Patient has history of Non Hodgekin's Lymphoma. No family history of breast cancer. Patient returns for a 6 month follow-up both breasts. COMPARISONS: Comparison is made to exams dated: 12/09/2015, 06/01/2015, 06/01/2015, 05/21/2015, 02/04/2014, and 01/23/2013 [facility]. BREAST TISSUE:The tissue of both breasts is heterogeneously dense. This may lower the sensitivity of mammography. FINDINGS: There is an asymmetry in the right breast middle depth medial region seen on the craniocaudal view only. This is not significantly changed. There is a focal asymmetry in the left breast at 2 o'clock middle depth. This is not significantly changed. No other significant masses or calcifications are seen in either breast. IMPRESSION: BI-RAD 3 PROBABLY BENIGN The asymmetry in the right breast middle depth medial region seen on the craniocaudal view only is probably benign. The focal asymmetry in the left breast at 2 o'clock middle depth is probably benign. A follow-up mammogram in 6 months is recommended to demonstrate stability. The patient has been or will be contacted. Jl hathaway/penbj:06/23/2016 09:39:43 Gambreler: Noreen Domínguez([place]), [facility] letter sent: Birad 3 Followup Reading location: [facility] BI-RADS: 3 Probably benign Procedure Note Jl Diane MD - 06/23/2016 - YAYA DIAG BILATERAL DIGITAL W CAD BILATERAL DIGITAL DIAGNOSTIC MAMMOGRAM WITH CAD WITH MEDIOLATERAL OBLIQUE CRANIOCAUDAL: 06/23/2016 The study was acquired using digital technology and interpreted from soft copy. Current study was also evaluated with ICAD version 7.2. CLINICAL: Diagnostic study. Patient has history of Non Hodgekin's Lymphoma. No family history of breast cancer. Patient returns for a 6 month follow-up both breasts. COMPARISONS: Comparison is made to exams dated: 12/09/2015, 06/01/2015, 06/01/2015, 05/21/2015, 02/04/2014, and 01/23/2013 [facility]. BREAST TISSUE:The tissue of both breasts is heterogeneously dense. This may lower the sensitivity of mammography. FINDINGS: There is an asymmetry in the right breast middle depth medial region seen on the craniocaudal view only. This is not significantly changed. There is a focal asymmetry in the left breast at 2 o'clock middle depth. This is not significantly changed. No other significant masses or calcifications are seen in either breast. IMPRESSION: BI-RAD 3 PROBABLY BENIGN The asymmetry in the right breast middle depth medial region seen on the craniocaudal view only is probably benign. The focal asymmetry in the left breast at 2 o'clock middle depth is probably benign. A follow-up mammogram in 6 months is recommended to demonstrate stability. The patient has been or will be contacted. Jl hathaway/loli:06/23/2016 09:39:43 Gambreler: Noreen Domínguez(R), [facility] letter sent: Birad 3 Followup Reading location: [facility] BI-RADS: 3 Probably benign us Aryan Levin MD IMG MAMMO ORDERABLES Final Result from Last 3 Months or Most Recently Relevant to Health Maintenance Insurance MEDICARE [employer]CIAL GENERIC Care Teams Diploma Maker Relationship Specialty Start Date End Date Provider, None [place] PCP - General 09/24/20
--- OUTSIDE RECORDS SUMMARY | 2024-07-22 07:26 | XMS_ITS | Continuity of Care Document ---
Author Name [facility] Address [address] [place] [address] Organization [facility] Care Team Providers Care Tripe Scraper Name Role Phone [facility] Unavailable Unavailable Allergies, Adverse Reactions, Alerts Substance Category Reaction Severity Reaction type Status Date Reported Comments Source sulfa drugs Assertion Swelling Moderate Drug allergy Active [facility]
== END 2024-07-22 07:20 | disposition home or self-care (01) ==
LOC: CHSIMG 07:23
PROVIDERS: PCP Internal Medicine; Visit Provider Internal Medicine
DX: Z12.31 Encounter for screening mammogram for malignant neoplasm of breast (principal)
CPT/HCPCS: 77063; 77067

== ENCOUNTER 2024-09-11 11:51 | Outpatient (CLI) | payer MEDICARE, SELFPAY ==
--- NOTE | ~2024-09-11 | DEXA_ITS ---
Bone Density Report Name: LAURA ALONZO Age: 69 Sex: Female Ethnicity: White Date of : 1955 Indication: osteopenia; monitoring treatment; hyperparathyroidism; height loss; hysterectomy; Referring Provider: Ysabel Rhodes Study: Bone densitometry was performed. Exam Date: September 11, 2024 Accession number: [id number] Bone Density: Region BMD T-score Z-score Classification AP Spine(L1-L4) 0.880 -1.5 0.7 Osteopenia Femoral Neck (Left) 0.589 -2.3 -0.5 Osteopenia Total Hip (Left) 0.804 -1.1 0.5 Osteopenia Femoral Neck (Right) 0.609 -2.2 -0.3 Osteopenia Total Hip (Right) 0.828 -0.9 0.7 Normal Femoral Neck Mean 0.599 -2.3 -0.4 Osteopenia Total Hip Mean 0.816 -1.0 0.6 Normal World Health Organization criteria for BMD impression classify patients as: Normal (T-score at or above -1.0), Osteopenia (T-score between -1.0 and -2.5), or Osteoporosis (T-score at or below -2.5). 10-year Fracture Risk: FRAX not reported because: Treated for osteoporosis Previous Exams: Region Exam Age BMD T-score BMD Change BMD Change Date g/cm2 vs Baseline vs Previous AP Spine (L1-L4) 09/11/2024 69 0.880 -1.5 0.030 (3.6%)# 0.020 (2.3%) 08/25/2023 68 0.861 -1.7 0.010 (1.2%)# 0.045 (5.6%)# 06/23/2022 67 0.815 -2.1 -0.035 (-4.1%) -0.051 (-5.9%) 03/24/2020 65 0.866 -1.6 0.016 (1.9%)# 0.016 (1.9%)# 11/01/2017 62 0.850 -1.8 Total Hip(Left) 09/11/2024 69 0.804 -1.1 0.009 (1.1%)# 0.054 (7.2%)* 08/25/2023 68 0.751 -1.6 -0.045 (-5.6%) 0.050 (7.2%)# 06/23/2022 67 0.700 -2.0 -0.095 (-11.9% -0.071 (-9.2%) 03/24/2020 65 0.771 -1.4 -0.024 (-3.0%) -0.024 (-3.0%) 11/01/2017 62 0.795 -1.2 Total Hip(Right) 09/11/2024 69 0.828 -0.9 0.060 (7.8%)# 0.091 (12.3%)* 08/25/2023 68 0.737 -1.7 -0.031 (-4.0%) 0.024 (3.3%)# 06/23/2022 67 0.714 -1.9 -0.055 (-7.1%) -0.055 (-7.1%) 03/24/2020 65 0.768 -1.4 *Denotes significance at 95% confidence level, LSC for AP Spine = 0.022 g/cm2, LSC for Total Hip = 0.027 g/cm2 # Denotes dissimilar scan types or analysis methods Clinical Information Provided by Patient: Is being treated for osteoporosis Has used the following medications: Fosamax (i.e. alendronate), HRT (i.e. estrogen/hormone therapy), Vitamin D, Calcium Has the following medical conditions: Hyperparathyroidism, Hysterectomy Patient maximum height was 65 Menopause Age: 38 No regular weight bearing exercise Onset of menses at age 10 Number of children 3 Impression: The patient has low bone mass, based on the Left Femoral Neck T-score. No significant bone loss was observed. Discussion: PATIENT UNDER TREATMENT WITH NO SIGNIFICANT BMD LOSS SINCE LAST EXAM. In an untreated patient, BMD typically declines with age. A lack of decline or gain is usually a sign that treatment is efficacious and fracture risk is reduced. It is important to ask patients whether they are taking their medications and to encourage continued and appropriate compliance with their osteoporosis therapies to reduce fracture risk. It is also important to review their risk factors and encourage appropriate calcium and vitamin D intakes, exercise, fall prevention and other lifestyle measures. Follow-Up: Consider a repeat BMD and Vertebral Fracture Assessment (VFA) exam in 2 years or sooner if medically necessary, to reassess this patient's status. Reported by: VANESSA on 09/11/2024 12:11:00 PM. Reviewed, dictated and finalized at location A.
--- OUTSIDE RECORDS SUMMARY | 2024-09-11 11:54 | XMS_ITS | Continuity of Care Document ---
Author Organization [facility] [place] Address [address] [place] [address] Phone Care Team Providers Care Crystal Gazer Name Role Phone Donavan Davidson MD, FACS Unavailable Unavailab le Allergies, Adverse Reactions, Alerts Substance Reaction Status Criticality Sulfa (Sulfonamide Antibiotics) Active No Information Medications Medication Instructions Dosage Effective Dates (start - stop) Status Comments Synthroid 125 mcg Tab take 1 tablet (125MCG) by ORAL route every day 125 MCG - Active lorazepam 0.5 mg tablet take 2 tablet by oral route 3 times every day as needed 1 MG - Active multivitamin tablet take 1 tablet by oral route every day with food - Active citalopram 10 mg tablet take 1 tablet by oral route every day 10 MG - Active Vitamin D3 25 mcg (1,000 unit) capsule take 1 tablet by oral route every day 1 tablet - Active lisinopril 10 mg-hydrochlorothiazi de 12.5 mg tablet take 1 tablet by oral route every day 1.00 tablet - Active alendronate 70 mg tablet take 1 tablet by oral route every week in the morning, at least 30 min before first food, beverage, or medication of day 70 MG - Active AREDS 2 ORAL CAPSULE - [...] Diagnoses Date Provider Providers Copied on [facility]counter [facility], [address], [place], [place], [id number], tel:[phone] SEC Shaheen XIE Professional Dilated exam (chief complaint) Peripheral drusen of both eyesCombined forms of age-related cataract, bilateral 4 Stuart Go[address], [address], [place], [place], [address], [place]. tel:[phone] Referring Provider: Donavan Avalos, [address], [place], [address] . tel:[phone] [facility] [employer] [facility], [address], [place], [place], [address], tel:[phone] SEC [place] Complete Exam (chief complaint) Drusen (degenerative) of macula, bilateralCombi lois forms of age-related cataract, bilateral Aug-2 8 3 Stuart Donavan. [facility] [employer], [address], [place], [place], [address], [place]. tel:[phone] Referring Provider: Donavan Avalos, [facility] [employer] [address], [place], [address] . tel:[phone] [facility], [facility] [address] [address], [place], [place], [address], [place] tel:[phone] SEC Shaheen XIE Professional Complete Exam (chief complaint) Other age-related incipient cataract, bilateralRetin al drusen of both eyes Jun- 8 Stuart Donavan. [facility] [employer], [address], [place], [place], [address], [place]. tel:[phone] Referring Provider: Donavan Avalos, [facility] [employer] [address], [place], [address] . tel:[phone] [employer] [facility], [facility] [address], [place], [place], [address], [place] tel:[phone] SEC Shaheen XIE Professional No Information Jun-0 8 Betzaida Peterson. [address] [place], [address], [place]. tel:[phone] [employer] [facility], [facility] [address], [place], [place], [address], [place] tel:[phone] [facility] Blurry vision (chief complaint) DRUSEN (DEGENERATIVE) Nov-0 5 Stuart Donavan. [facility] [employer], [address], [place], [place], [address], [place]. tel:[phone] Referring Provider: Donavan Avalos, [facility] [employer] [address], [place], [address] . tel:[phone] [employer] [facility], [facility] [address], [place], [place], [address], [place] tel:[phone] SEC [place] N [place] DRUSEN (DEGENERATIVE) Apr-0 1-201 3 [place] Donavan. [facility] [employer], [address], [place], [place], [address] [place] [address], . tel:[phone] Referring Provider: Donavan Avalos, [facility] [employer] [facility] [address], [place], [address] . tel:[phone] [employer] [facility], [facility] [employer] [address], [place], [place], [address] [place] [address], tel:[phone] SEC [place] N [place] No Information Oct-2 5-201 0 Stuart Go. [facility] [employer], [address], [place], [place], [address], . tel:[phone] Referring Provider: Donavan Avalos, [facility] [employer] [facility] [address], [place], [address] . tel:[phone] [employer] [facility], [facility] [address] [address], [place], [place], [address] [place] [address], tel:[phone] SEC [place] No Information Jan-2 1-201 0 Stuart Donavan. [facility] [employer], [address], [place], [place], [address], . tel:[phone] Office/outpa tient Visit, [facility], [facility] [address], [place], [place], [address], tel:[phone] SEC [place] No Information Mar-0 2-200 9 [place] Donavan. [facility] [employer], [address], [place], [place], [address], . tel:[phone] Referring Provider: Donavan Avalos, [facility] [employer] [address], [place], [address] . tel:[phone] Family History Family Member Type Diagnosis Age [...] Disease Payers Payer name Insurance type Covered libertarian ID Authorjosé miguelarlette subramanian(s) [place] [id number] [facility] [id number] Social History Type Description Quantity Date Captured [...]
--- OUTSIDE RECORDS SUMMARY | 2024-09-11 11:54 | XMS_ITS | Clinical Summary ---
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 Phone Provider, None Primary Care [...] P M CDT Height 162.6 cm (5' 4) 11/07/2019 1:31 PM CDT Body Mass Index 25.64 11/07/2019 1:31 PM CDT Plan of Treatment Health Maintenance Due Date Last Done Comments Hepatitis C Virus (HCV) Screening 1955 Cologuard 2003 Immunochemical Fecal Occult Blood 2003 Zoster Immunization (1 of 2) 2003 Colonoscopy 09/29/2021 09/29/2016 Colorectal Cancer Screening 09/29/2021 Td Immunization Every 10 Years (Adults With 1 Tdap) 02/21/2022 02/22/2012 SARS-COV-2 Immunization ( season) 2023 02/26/2021, 07/09/2020, 06/11/2020 Influenza Immunization (Season Ended) 2024 02/18/2019, 01/31/2018, 01/14/2016, Additional history exists Respiratory Syncytial Virus (RSV) Immunization (Adult) (1 - 1-dose 75+ series) 02/11/2028 09/29/2016 Mammogram Discontinued 06/23/2016, 08/04/2015, 06/01/2015, Additional history exists Pneumococcal Immunization (50+ years) Completed 02/18/2019, 01/31/2018 Pneumococcal Immunization Combined Discontinued 02/18/2019, 01/31/2018 Hepatitis B Immunization Aged Out No longer eligible based on patient's age to complete this topic Human Papillomavirus (HPV) Immunization Aged Out No longer eligible based [...] Results * HM COLONOSCOPY (09/29/2016) us Sumit Louise Schuster DO PROCEDURE/MINOR SURGICAL ORDERA BLES Final [...] 06/01/2015, 06/01/2015, 05/21/2015, 02/04/2014, and 01/23/2013 [facility]. BREAST TISSUE:The tissue of both breasts [...] has been or will be contacted. Jl Diane M.D. bs/penbj:06/23/2016 09:39:43 Compliance Clerk: Noreen Domínguez(R), [facility] letter sent: Birad 3 Followup Reading location: [facility] BI-RADS: 3 Probably benign Procedure Note Jl [...] 12/09/2015, 06/01/2015, 06/01/2015, 05/21/2015, 02/04/2014, and 01/23/2013 [facility]. BREAST TISSUE:The tissue of both breasts [...] or will be contacted. Jl hathaway/loli:06/23/2016 09:39:43 Compliance Clerk: Noreen Domínguez(R), [facility] letter sent: Birad 3 Followup Reading location: [facility] BI-RADS: 3 Probably benign us Aryan Levin MD IMG MAMMO ORDERABLES Final Result from Last 3 Months or Most Recently Relevant to Health Maintenance Insurance MEDICARE Member Subscriber Plan / Payer (Ef fective 2018-Present) Name:Jeane Barroso Member ID:[id number] Relation to Subscriber:Self Name:Jeane burks Subscriber ID:[id number] Payer ID:[id number] Group ID:Not on file Type:Not on file Address: [facility] [address] [facility] [employer] [facility] [address] [employer] Care Teams Coal Shoveler Relationship Specialty Start Date End Date Provider, None [place] PCP - General 09/24/20
--- OUTSIDE RECORDS SUMMARY | 2024-09-11 11:54 | XMS_ITS | Continuity of Care Document ---
Author Name [facility] Address [address] [place] [address] [facility] Care Team Providers Care Data Processing Systems Consultant Name Role Phone [facility] Unavailable Unavailable Allergies, Adverse Reactions, Alerts Substance Category Reaction Severity Reaction type Status Date Reported Comments Source sulfa drugs Assertion Swelling Moderate Drug allergy Active [facility]
--- OUTSIDE RECORDS SUMMARY | 2024-09-11 11:54 | XMS_ITS | Clinical Summary ---
Author Organization 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
== END 2024-09-11 11:52 | disposition home or self-care (01) ==
LOC: CHSIMG 11:52
PROVIDERS: PCP Internal Medicine; Visit Provider Internal Medicine
DX: M81.0 Age-related osteoporosis without current pathological fracture (principal); M85.89 Other specified disorders of bone density and structure, multiple sites
CPT/HCPCS: 77080